=== PATIENT | male | born 1985 | race Caucasian/White ===

== ENCOUNTER 2020-10-18 09:54 | Emergency (ER) | payer OTHER ==
[~2020-10-18] VITALS: Ht 182.9 cm; Wt 77.1 kg
[2020-10-18] MEDS ORDERED: BACTRIM DS TAB1 EACH PO (10:26)
[2020-10-18 10:34] VITALS: BP 127/63
== END 2020-10-18 10:36 | disposition home or self-care (01) ==
LOC: M.ERS 09:54
DX: R10.33 Periumbilical pain (principal)